=== PATIENT | female | born 1985 | race Caucasian/White ===

== ENCOUNTER 2020-04-14 14:58 | Outpatient (REF) | payer BC, SELFPAY ==
[2020-04-15 13:51] LABS: BV Int Neg Control Negative (Negative); BV Int Pos Control Positive (Positive)
[2020-04-15 13:54] LABS: CT PCR NOT DETECTED (Not Detect.); NG PCR NOT DETECTED (Not Detect.)
== END 2020-04-14 14:59 | disposition home or self-care (01) ==
LOC: HO.LAB 14:58
PROVIDERS: PCP Internal Medicine; Referring Provider Internal Medicine; Visit Provider Advanced Practice Midwife
DX: Z20.2 Contact with and (suspected) exposure to infections with a predominantly sexual mode of transmission (principal); Z87.42 Personal history of other diseases of the female genital tract; Z01.419 Encounter for gynecological examination (general) (routine) without abnormal findings
CPT/HCPCS: 87480; 87491; 87510; 87591; 87660; 88142

== ENCOUNTER 2020-04-14 17:01 | Outpatient (REF) | payer BC, SELFPAY ==
[2020-04-14 17:25] LABS: Baso%MD 1.8 %; Eos%MD 5.8 %; Hematocrit 38.3 % (37-47); Hemoglobin 12.2 g/dl (12.0-16.0); IG%MD 0.2 %; Lymph%MD 29.9 %; Mean Corpuscular HGB Conc 31.9 g/dl (31.0-35.0); Mean Corpuscular Volume 97.2 fL (80-98); Mean Platelet Volume 10.6 fL (9.4-12.3); Mono%MD 10.1 %; Neut%MD 52.2 %; Platelet Count 274 X10*3/uL (160-400); Red Blood Count 3.94 X10*6/uL (4.20-5.50); Red Cell Distribution Width 12.5 % (11.0-16.0); White Blood Count 6.1 X10*3/uL (4.8-10.8)
[2020-04-14 18:04] LABS: Alanine Aminotransferase 11 U/L (0-31); Albumin Level 4.4 g/dL (3.5-5.0); Alkaline Phosphatase 89 U/L (39-117); Anion Gap 12 (12-20); Aspartate Amino Transferase 15 U/L (5-31); Bilirubin Total 0.7 mg/dL (0.0-1.0); Blood Urea Nitrogen 12 mg/dL (9-16); Calcium 8.5 mg/dL (8.4-10.2); Carbon Dioxide 27 mmol/L (22-29); Chloride 104 mmol/L (96-108); Estimated Glomerular Filt Rate > 60; Glucose Random 74 mg/dL (60-115); Potassium 4.6 mmol/l (3.3-5.1); Sodium 138 mmol/L (135-145); Total Protein 6.8 g/dL (6.5-8.0)
[2020-04-14 18:24] LABS: TSH reflex Free T4 1.29 mIU/mL (0.32-4.0)
[2020-04-14 18:36] LABS: Folate 10.9 ng/mL (> or = 4.0); Vitamin B12 405 pg/mL (200-900)
[2020-04-14 19:06] LABS: Band Neutrophils Percent 1 % (3-5); Basophils Abs Manual 0.1 X10*3/uL (0.0-0.3); Basophils Percent Manual 2 % (0-1); Eosinophils Absolute Manual 0.3 X10*3/UL (0.0-0.8); Eosinophils Percent Manual 5 % (0-4); Lymphocytes Absolute Manual 1.6 X10*3/uL (0.6-4.8); Lymphocytes Percent Manual 26 % (20-40); Monocytes Absolute Manual 0.4 X10*3/uL (0.0-1.2); Monocytes Percent Manual 6 % (2-11); Neutrophils Absolute Manual 3.7 X10*3/uL (2.2-7.9); Neutrophils Percent Manual 60 % (45-73)
[2020-04-14 19:07] LABS: RBC Morphology NORMAL
[2020-04-14 19:08] LABS: Platelet Estimate NORMAL (NORMAL); Platelet Morphology Comment NORMAL
== END 2020-04-14 17:02 | disposition home or self-care (01) ==
LOC: HO.LAB 17:01
PROVIDERS: PCP Internal Medicine; Visit Provider Internal Medicine
DX: Z01.419 Encounter for gynecological examination (general) (routine) without abnormal findings (principal); R63.4 Abnormal weight loss; Z87.42 Personal history of other diseases of the female genital tract; Z20.2 Contact with and (suspected) exposure to infections with a predominantly sexual mode of transmission
CPT/HCPCS: 36415; 80053; 82607; 82746; 84443; 85007; 85027

== ENCOUNTER 2021-08-14 08:48 | Outpatient (REF) | payer BC, SELFPAY ==
[2021-08-17 18:17] LABS: HPV mRNA E6/E7 rflx Not Detected (Not Detected)
== END 2021-08-14 08:49 | disposition home or self-care (01) ==
LOC: HO.LAB 08:48
PROVIDERS: Visit Provider Advanced Practice Midwife
DX: Z01.419 Encounter for gynecological examination (general) (routine) without abnormal findings (principal); Z11.51 Encounter for screening for human papillomavirus (HPV)
CPT/HCPCS: 87624; 88142

== ENCOUNTER 2023-04-23 17:23 | Outpatient (AMB) | payer BC, SELFPAY ==
--- NOTE | 2023-04-23 17:25 | MHC.PC.OV ---
Vital Signs 04/23/23 17:26 Height 5 ft 3 in Weight 131 lb BMI 23.2 BP 110/70 Blood Pressure Location Lt brachial Position Sitting Intake Visit Reasons: PHYSICAL Intake Note: Patient here for a physical exam Medical Lab Technician Required: No Accompanied by: Self / Same As Patient Allergies seasonal Allergy (Mild, Uncoded 04/23/23 17:29) Itchy Eyes Medication List - Last Reconciled 04/23/23 by Shandra Gatica MD No Known Home Meds Tobacco use date assessed: 04/23/23 Dental Screening Dental Screen Date: 04/23/23 Did you have a dental visit in the last 12 months?: Yes Did you have a dental problem in the last 6 months where you did not have access to dental care?: No Was dental information given to patient?: Patient has dentist HPI HPI Comments History of Present Illness Details This is a 37-year-old female that comes for her physical exam. Last Pap smear was 2021 and was normal. No chest pain or shortness of breath. No fever or cough. PFSH Medical History Basophilia Weight loss Surgical History H/O LEEP Family History Father Cancer Mother No problems noted. 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 1. Little interest or pleasure in doing things: not at all 2. Feeling down, depressed, or hopeless: not at all 3. Trouble falling or staying asleep, or sleeping too much: not at all 4. Feeling tired or having little energy: not at all 5. Poor appetite or overeating: not at all 6. Feeling bad about yourself - or that you are a failure or have let yourself or your family down: not at all 7. Trouble concentrating on things, such as reading the newspaper or watching television: not at all 8. Moving or speaking so slowly that other people could have noticed. Or the opposite - being so fidgety or restless that you have been moving around a lot more than usual: not at all 9. Thoughts that you would be better off or of hurting yourself in some way: not at all Total score: 0 Depression Screening Interpretation: Negative Depression Screening Done: Yes Source: Developed by Drs. Leonel Morin, Julia Shaffer, Eugene Clark and colleagues, with an educational graciela from [employer]. Thrive Questionnaire Date Thrive assessed: 04/23/23 I am a: Patient What is your living situation today?: I have a steady place to live Within the past 12 months, did the food you bought not last and you didn't have the money to get more?: Never true Within the past 12 months, did you worry whether your food would run out before you got money to buy more?: Never true Do you have trouble paying for medicines?: No Do you have trouble getting transportation to medical appointments?: No Do you have trouble paying your heating and electricity bill?: No Do you have trouble taking care of your child, family member or friend?: No Do you have trouble with day-to-day activities such as bathing, preparing meals, shopping, managing finances, etc.?: No Are you currently unemployed and looking for a job?: No Are you interested in more education?: No Please select the resources that you would like help with: None Currently or been in a relationship where the following occur: no concerns reported AUDIT C Alcohol Use Questionnaire (AUDIT-C) 1. How often do you have a drink containing alcohol?: Never Total Score: 0 NISH-7 AMB Questionnaire NISH-7 Date NISH - 7 assessed: 04/23/23 Feeling nervous, anxious, or on edge: 0 = Not at all Not being able to stop or control worryin = Not at all Worrying too much about different things: 0 = Not at all Trouble relaxin = Not at all Being so restless that it is hard to sit still: 0 = Not at all Becoming easily annoyed or irritable: 0 = Not at all Feeling afraid as if something awful might happen: 0 = Not at all Total NISH-7 score (0-4 normal; 5-9 mild; 10-14 moderate; 15-21 severe): 0 Source: Developed by Drs. Leonel Morin, Julia Shaffer, Eugene Clark and colleagues, with an educational graciela from [employer]. NISH-7 Assessment Billing NISH-7 Assessment Tool: NISH-7 Assessment 98534 Review of Systems Const All systems reviewed & are unremarkable except as noted in HPI and below Eyes Reports no additional complaints, Denies change in vision and Denies other visual disturbances Card Denies chest pain at rest, Denies chest pain with activity, Denies edema, Denies irregular heart rhythm, Denies claudication, Denies dyspnea, Denies dyspnea on exertion, Denies orthopnea, Denies paroxysmal nocturnal dyspnea and Denies slow heart rate Resp Denies cough, Denies dyspnea and Denies dyspnea on exertion GI Denies abdominal pain, Denies change in bowel habits, Denies excessive flatus, Denies nausea and Denies vomiting Denies urinary incontinence, Denies urinary hesitancy and Denies urinary urgency Musc Denies abnormal gait, Denies atrophy, Denies deformity and Denies limited range of motion Skin/Breast Denies bleeding lesions, Denies changing lesions and Denies rash Neuro Denies abnormal gait and Denies lack of coordination Physical exam (Primary Care) Vital Signs: Last Vital Signs BP 110/70 04/23/23 17:26 BMI result Body Mass Index 23.2 Tobacco/Smoking Status: Tobacco use Status Tobacco use date assessed 04/23/23 04/23/23 17:30 Patient Tobacco Use Status Never used Tobacco 04/23/23 17:29 Tobacco use type 04/11/22 17:22 e-Cigarette/Vaping Use Never Used 04/23/23 17:29 PHQ-9: PHQ-9 Score PHQ-9: Total score 0 04/23/23 17:29 Depression Screening Interpretation: Negative Thrive Assessment: Date of Thrive Assessment Date Thrive assessed 04/23/23 04/23/23 17:29 Currently or been in a relationship where the following occur: no concerns reported Const Orientation/consciousness: patient oriented x3 HENKY Head: Yes normal to inspection, Yes normocephalic and Yes atraumatic Ears: external ears normal Eyes General: appearance normal, both eyes and all related structures Eyelids: Yes eyelids normal Conjunctivae: conjunctivae normal Neck Neck: Yes normal visual inspection and Yes supple Resp Effort & Inspection: normal respiratory effort Auscultation: clear to auscultation bilaterally Cardio Jugular venous distension: no JVD Rate: regular rate Rhythm: regular rhythm Heart sounds: S1 normal heart sound present and S2 normal heart sound present GI Inspection: Yes normal to inspection Palpation (GI): Soft to palpation and nontender Auscultation: normal bowel sounds Skin General skin exam: no rashes or lesions noted Neuro General: patient oriented x3 and no focal motor deficits Extrem General: Yes full ROM Psych Appearance: grossly normal Office Procedures Flu Questionnaire Does the patient have a severe egg allergy?: No Immunizations flu vacc [id number] 6mos up(PF) 60 mcg(15 mcgx4)/0.5 mL IM syringe Performing Provider: Shandra Gatica MD [facility] Documented (not given) by: FRED Laguerre on 04/23/23 17:30 Reason Not Given: Patient Refused Assessment and Plan Assessment & Plan (1) Encounter for physical examination: Code(s): Z00.00 - Encounter for general adult medical examination without abnormal findings Plan: Repeat in a year. Orders: Orders Influenza [id number] Immunization 04/23/23 Z23 - Encounter for immunization Coding Level of Care Code Est Pt Prev Care 18-39y(44708) Diagnoses Encounter for physical examination Z00.00 Additional Codes PHQ-9 - 88458 - PHQ-9 Billing: ([id number]) NISH-7 Assessment Billing - NISH-7 Assessment Tool: NISH-7 Assessment 47062 ([id number]) Time Spent (min) 30
[2023-04-23 17:26] VITALS: BP 110/70; BMI 23.2
== END 2023-04-23 17:38 | disposition home or self-care (01) ==
LOC: HO.HMGH 17:23
PROVIDERS: PCP Internal Medicine; Visit Provider Internal Medicine
DX: Z00.00 Encounter for general adult medical examination without abnormal findings (principal)
CPT/HCPCS: 99395

== ENCOUNTER 2023-06-12 14:02 | Outpatient (AMB) | payer BC, SELFPAY ==
[2023-06-12 14:24] VITALS: BP 94/60; BMI 22.7
--- NOTE | 2023-06-12 14:24 | MHC.OFFVIS ---
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 Doing well with no concerns. She tries to eat healthy and stays active with exercise. Regular monthly menses. Not interested in control at this time, current method has worked for the 5-6 years, she is considering possibly in a year to have a . Currently is sexually active. She denies vaginal itching and irritation. STI screening offered; she declines. Denies family history of breast, ovarian or colon cancer. Last pap smear 2022, negative. [facility] Medical History Basophilia Weight loss Surgical History H/O LEEP Family History Father Cancer Mother No problems noted. 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 Current occupational exposures/hazards: No Gender identity: Female Cognitive needs: No Hearing needs: No Vision needs: No Female Reproductive History Menstrual Age of Menarche: 15 Duration of menses: 3-5 days Date of last menstrual period: 05/22/23 control method: none and other (Withdrawal) Total pregnancies: 0 Date of last pap smear: 08/14/21 (neg pap and hpv) History of abnormal pap smear: Yes (h/o Leep 2009) Review of Systems Const All systems reviewed & are unremarkable except as noted in HPI and below Reports as per HPI Eyes Reports no additional complaints ENT Reports no additional complaints Card Reports no additional complaints Resp Reports no additional complaints GI Reports as per HPI and Reports no additional complaints Reports as per HPI Musc Reports no additional complaints Skin/Breast Reports as per HPI Neuro Reports no additional complaints Psych Reports no additional complaints Endo Reports no additional complaints Mitch/Lymph Reports no additional complaints Aller/Immun Reports no additional complaints Physical Exam Vital Signs: Last Vital Signs BP 94/60 06/12/23 14:24 BMI result Body Mass Index 22.7 Const General: cooperative, healthy appearing, no acute distress, well developed and alert Orientation/consciousness: patient oriented x3 HEENT Head: Yes normal to inspection Eyes General: appearance normal, both eyes and all related structures Neck Neck: Yes normal visual inspection Thyroid: Thyroid normal Chest Chest palpation & inspection: normal inspection of the chest and other (no puckering, dimpling, peau de orange, retraction, discharge, masses) Breast/axilla inspection: normal inspection of the breasts Breast/axilla palpation: normal palpation of the breasts Resp Effort & Inspection: normal respiratory effort GI Inspection: Yes normal to inspection Palpation (GI): Soft to palpation Rectal Exam - Female: deferred General: Yes bladder normal to palpation External Female Exam: normal external appearance and normal appearance of the urethra Speculum Exam - Vagina: normal appearance of the vagina, normal palpation and normal vaginal discharge Speculum Exam - Cervix: normal appearance of the cervix, normal palpation and Other cervical findings present (Post LEEP appearance) Bimanual exam- vagina & uterus: normal bimanual exam, normal palpation, uterine size normal, bladder normal to palpation, normal palpation and non-tender Bimanual Exam- Adnexa, other: no masses Skin General skin exam: no rashes or lesions noted Rashes: no rashes Neuro General: patient oriented x3 Cognition (Neuro): normal cognition Extrem General: Yes normal to inspection Psych Attitude: cooperative Thought process: Normal thought process present Assessment & Plan Assessment & Plan (1) Well woman exam with routine gynecological exam: Code(s): Z01.419 - Encounter for gynecological examination (general) (routine) without abnormal findings Plan: Discussed: Current recommendations for pap smears per ASCCP guidelines. Breast awareness and periodic breast exams. Maintain a healthy lifestyle including a well balanced diet and routine exercise. Start a vitamin or a woman's multivitamin with folic acid per the prevention of neural tube defects. Discussed safety concerns at her job advised to check in with her union to see with the OSHA regulations are in safety concerns for environmental hazards. Fertility concerns at this time due to her age. Informed about TRICE services in advanced maternal age concerns. All of her questions and concerns were addressed to the best of my ability. RTO in one year for annual precision aircraft structure assembler examination. This note is constructed using voice recognition software. While every effort has been made to ensure accuracy, sagger preparer errors may have been included. Coding Level of Care Code Est Pt Prev Care 18-39y(01167) Diagnoses Well woman exam with routine gynecological exam Z01.419
== END 2023-06-12 14:53 | disposition home or self-care (01) ==
PROVIDERS: PCP Internal Medicine; Visit Provider Advanced Practice Midwife
DX: Z01.419 Encounter for gynecological examination (general) (routine) without abnormal findings (principal)
CPT/HCPCS: 99395

== ENCOUNTER → 2023-06-12 14:02 | Outpatient (BNVA) | payer BC, SELFPAY | PROVIDERS: PCP Internal Medicine; Visit Provider Advanced Practice Midwife ==

== ENCOUNTER 2023-12-15 07:26 | Outpatient (REF) | payer BC, SELFPAY ==
[2023-12-15 08:35] LABS: Alanine Aminotransferase 12 U/L (0-31); Albumin Level 4.3 g/dL (3.5-5.0); Alkaline Phosphatase 84 U/L (39-117); Anion Gap 13 (12-20); Aspartate Amino Transferase 16 U/L (5-31); Bilirubin Total 0.7 mg/dL (0.0-1.0); Blood Urea Nitrogen 9 mg/dL (9-16); Calcium 9.2 mg/dL (8.4-10.2); Carbon Dioxide 26 mmol/L (22-29); Chloride 103 mmol/L (96-108); Cholesterol 161 mg/dL (<200); Estimated Glomerular Filt Rate > 60; Glucose Fasting 90 mg/dL (60-99); HDL Cholesterol 62 mg/dL (>40); LDL Cholesterol Calculated 87 mg/dL (<100); Potassium 3.8 mmol/L (3.3-5.1); Sodium 138 mmol/L (135-145); Total Protein 6.8 g/dL (6.5-8.0); Triglycerides 61 mg/dL (<150)
[2023-12-17 13:07] LABS: Venous Lead 1.5 mcg/dL (<3.5)
== END 2023-12-15 07:27 | disposition home or self-care (01) ==
LOC: HO.LAB 07:26
PROVIDERS: PCP Internal Medicine; Visit Provider Internal Medicine
DX: Z00.00 Encounter for general adult medical examination without abnormal findings (principal); Z77.011 Contact with and (suspected) exposure to lead
CPT/HCPCS: 36415; 80053; 80061; 83655

== ENCOUNTER 2024-05-04 17:31 | Outpatient (AMB) | payer BC, SELFPAY ==
--- NOTE | 2024-05-04 17:34 | A.OFFPC_ITS ---
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 Required: No Accompanied by: Self / Same As Patient Allergies seasonal Allergy (Mild, Uncoded 05/04/24 17:47) Itchy Eyes Medication List - Last Reconciled 05/04/24 by Shandra Gatica MD No Known Home Meds Tobacco use date assessed: 05/04/24 Dental Screening Dental Screen Date: 05/04/24 Did you have a dental visit in the last 12 months?: Yes Did you have a dental problem in the last 6 months where you did not have access to dental care?: No Was dental information given to patient?: Patient has dentist HPI HPI Comments History of Present Illness Details The patient is a 38-year-old female presenting for her annual physical examination. During this visit, we identified her need for the Tdap vaccine, which she has not received in a long time. In reviewing her history, the patient experiences seasonal allergies, for which she currently takes no medication. She reports a history of pityriasis rosea that resolved after approximately two months without identification of an inciting factor. Following this, she developed tinea corporis, for which she sought care from urgent care and subsequently a sales associate. Both conditions have resolved with treatment, though the etiology remains unclear and attributed to bad luck. 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 Currently, she expresses concerns over recurrent ringworm episodes possibly related to past infections. She reports no symptoms indicative of an active infection. In her attempts to conceive, she has been trying for two months without much concern for timing at this stage. The alva ent?s Pap smear in 2021 was normal and HPV-negative. - Tdap vaccine: Recommended and to be ad ministered at a nurse visit. - Seasonal allergies: No medications cur rently taken. - Pap smear: Normal in 2021 with HPV-neg ative results. - Encouragement of good diet and moderat e exercise as part of a healthy lifestyle. PFSH Medical History Basophilia Weight loss Surgical History H/O LEEP Family History Father Cancer Mother No problems noted. 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 1. Little interest or pleasure in doing things: not at all 2. Feeling down, depressed, or hopeless: not at all 3. Trouble falling or staying asleep, or sleeping too much: not at all 4. Feeling tired or having little energy: not at all 5. Poor appetite or overeating: not at all 6. Feeling bad about yourself - or that you are a failure or have let yourself or your family down: not at all 7. Trouble concentrating on things, such as reading the newspaper or watching television: not at all 8. Moving or speaking so slowly that other people could have noticed. Or the opposite - being so fidgety or restless that you have been moving around a lot more than usual: not at all 9. Thoughts that you would be better off or of hurting yourself in some way: not at all Total score: 0 Depression Screening Interpretation: Negative Depression Screening Done: Yes 04219 - PHQ-9 Billing: Yes Source: Developed by Drs. Leonel Morin, Julia Shaffer, Eugene Clark and colleagues, with an educational graciela from [employer]. Thrive Questionnaire Date Thrive assessed: 04/27/24 I am a: Patient What is your living situation today?: I have a steady place to live Within the past 12 months, did the food you bought not last and you didn't have the money to get more?: Never true Within the past 12 months, did you worry whether your food would run out before you got money to buy more?: Never true Do you have trouble paying for medicines?: No Do you have trouble getting transportation to medical appointments?: No Do you have trouble paying your heating and electricity bill?: No Do you have trouble taking care of your child, family member or friend?: No Do you have trouble with day-to-day activities such as bathing, preparing meals, shopping, managing finances, etc.?: No Are you currently unemployed and looking for a job?: No Are you interested in more education?: No Please select the resources that you would like help with: None Currently or been in a relationship where the following occur: No concerns reported THRIVE Score: 0 AUDIT C Alcohol Use Questionnaire (AUDIT-C) 1. How often do you have a drink containing alcohol?: Never Total Score: 0 Score Reviewed/Action Taken: No NISH-7 AMB Questionnaire NISH-7 Date NISH - 7 assessed: 05/04/24 Feeling nervous, anxious, or on edge: 0 = Not at all Not being able to stop or control worryin = Not at all Worrying too much about different things: 0 = Not at all Trouble relaxin = Not at all Being so restless that it is hard to sit still: 0 = Not at all Becoming easily annoyed or irritable: 0 = Not at all Feeling afraid as if something awful might happen: 0 = Not at all Total NISH-7 score (0-4 normal; 5-9 mild; 10-14 moderate; 15-21 severe): 0 Source: Developed by Drs. Leonel Morin, Julia Shaffer, Eugene Clark and colleagues, with an educational graciela from [employer]. NISH-7 Assessment Billing NISH-7 Assessment Tool: NISH-7 Assessment 66605 Review of Systems Const All systems reviewed & are unremarkable except as noted in HPI and below Card Denies chest pain at rest, Denies chest pain with activity, Denies edema, Denies irregular heart rhythm, Denies claudication, Denies dyspnea, Denies dyspnea on exertion, Denies orthopnea, Denies paroxysmal nocturnal dyspnea and Denies slow heart rate Resp Denies cough, Denies dyspnea and Denies dyspnea on exertion GI Denies abdominal pain, Denies change in bowel habits, Denies excessive flatus, Denies nausea and Denies vomiting Physical exam (Primary Care) Vital Signs: Last Vital Signs BP 112/80 05/04/24 17:35 BMI result Body Mass Index 24.1 Tobacco/Smoking Status: Tobacco use Status Tobacco use date assessed 05/04/24 05/04/24 17:42 Patient Tobacco Use Status Never used Tobacco 05/04/24 17:42 Tobacco use type 04/11/22 17:22 e-Cigarette/Vaping Use Never Used 05/04/24 17:42 PHQ-9: PHQ-9 Score PHQ-9: Total score 0 05/04/24 17:48 Depression Screening Interpretation: Negative Thrive Assessment: Date of Thrive Assessment Date Thrive assessed 04/27/24 05/04/24 17:42 Currently or been in a relationship where the following occur: No concerns reported HENMI Head: Yes normal to inspection, Yes normocephalic and Yes atraumatic Ears: external ears normal Eyes General: appearance normal, both eyes and all related structures Eyelids: Yes eyelids normal Conjunctivae: conjunctivae normal Neck Neck: Yes normal visual inspection and Yes supple Resp Effort & Inspection: normal respiratory effort Auscultation: clear to auscultation bilaterally Cardio Jugular venous distension: no JVD Rate: regular rate Rhythm: regular rhythm Heart sounds: S1 normal heart sound present and S2 normal heart sound present GI Inspection: Yes normal to inspection Palpation (GI): Soft to palpation and nontender Auscultation: normal bowel sounds Skin General skin exam: no rashes or lesions noted Neuro General: no focal motor deficits Extrem General: Yes full ROM Psych Appearance: grossly normal Office Procedures Flu Questionnaire Does the patient have a severe egg allergy?: No Immunizations Fluarix Triv [id number] (PF) 45 mcg (15 mcg x 3)/0.5 mL IM syringe Performing Provider: Shandra Gatica MD [facility] Documented (not given) by: FRED Laguerre on 05/04/24 17:42 Reason Not Given: Patient Refused Coding Level of Care Code Est Pt Prev Care 18-39y(68169) Diagnoses Encounter for physical examination Z00.00 Additional Codes NISH-7 Assessment Billing - NISH-7 Assessment Tool: NISH-7 Assessment 33608 ([id number]) PHQ-9 - 71425 - PHQ-9 Billing: Yes ([id number]) Time Spent (min) 31 Assessment & Plan Assessment & Plan (1) Encounter for physical examination: Code(s): Z00.00 - Encounter for general adult medical examination without abnormal findings Category: Medical Plan - Seasonal Allergies: No medication change needed at this time unless symptoms worsen. - Tdap Vaccine: To make a nurse visit to ensure up-to-date vaccination status. - Pityriasis Rosea and Tinea Corporis: Resolved, no further action needed unless recurrence occurs. - Past Infections EBV and Lyme Disease): No current symptoms. No immediate testing required unless new symptoms develop. - Family Planning: Continue use of ovulation kits and temperature tracking. Consider assisted reproductive technologies if conception does not occur after one year of attempts. Patient was informed and verbally consented to the use of an ambient scribe for clinic note documentation during this visit. I discussed with the patient the importance of receiving the Tdap vaccine, especially in the context of her plans to conceive. I reiterated that the vaccine would not interfere with her efforts to get and highlighted its role in preventing pertussis, which could be beneficial in the context of future . We reviewed her dermatologic history, acknowledging her experiences with pityriasis rosea and tinea corporis, and agreed these resolved without ongoing issues. We ruled out immediate testing for Lyme Disease or Rodriguez-Garland Virus due to lack of symptoms indicative of a recurrence. Regarding her conception efforts, I advised her to continue using ovulation tracking measures and maintain a healthy lifestyle. Follow-up was suggested for monitoring her progress in conceiving if needed in the future. Orders: Orders Influenza [id number] Immunization Today Z23 - Encounter for immunization Patient Instructions: - Receive Tdap vaccine by making a nurse visit. - Continue trying to conceive with current methods; plan reassessment if no progress within one year. - Maintain seasonal allergy management as symptoms dictate. - Adhere to a balanced diet and engage in moderate physical activities.
[2024-05-04 17:35] VITALS: BP 112/80; BMI 24.1
--- OUTSIDE RECORDS SUMMARY | 2024-05-05 22:31 | XMS_ITS | Data Portability ---
Author Organization [facility] rajesh [id number] [place] [address] Assessment No assessment recorded. Plan of Treatment Reminders Order Date Submit Date Provider Last Modified By Organization Details Last Modified Time Details Appointments None record ed. Lab None record ed. Referral None record ed. Procedures None record ed. Surgeries None record ed. Imaging None record ed. Medication Orders None record ed. Patient TargetsNo targets recorded. Patient Instructions Encounter Date Encounter Id Patient Instructions Last Modified By Organization Details Last Modified Time 01/20/2024 [id number] Explained that Pityriasis rosea is a self-limiting rash that goes away on its own without any treatment. Although the rash can be quite dramatic, the illness is very mild. This rash itself is not contagious. It most commonly affects young adults but can affect all ages. The rash fades in time but this may take several weeks. It leaves no peterson or scarring. Second attacks are very rare. [email or web address] Not available 01/20/2024 18:32:34 Reason for Referral None Reported. Problems No Known Problems Medical Equipment None Reported. Allergies No known drug allergies Medications Not known to be on any medication Vitals Date Recorded Body height Body weight Oxygen saturation Oxygen saturation in Arterial blood by Pulse oximetry Heart rate Respiratory rate Body temperature Systolic blood pressure Diastolic blood pressure Provider Name and Address Organization Details Last Updated DateTime 4 160.02 cm 64817.0 1 g 99 % 99 % 86 /min 18 /min 98.8 [degF] 100 mm[Hg] 67 mm[Hg] Becky Reed [facility] 4 18:05:01 Social History Question Answer Notes LastModified by Organizat ion Details LastModified Time Tobacco Smoking Status Never Smoker MORGAN Berger [facility] 01/20/2024 18:03:39 What Is Your Level Of Alcohol Consumption? None Information not available 01/20/2024 Are You Currently Employed? Yes Information not available 01/20/2024 Have You Had A Flu Shot This Season? Yes Information not available 01/20/2024 What Is Your Relationship Status? Information not available 01/20/2024 Are You Passively Exposed To Smoke? No Information no t available 01/20/2024 Do You Use Any Illicit Or Recreational Drugs? No Information not available 01/20/2024 Have You Recently Traveled Abroad? No Information not available 01/20/2024 Do You Or Have You Ever Used Any Other Forms Of Tobacco Or Nicotine? No Information not available 01/20/2024 Sex: Unknown Functional Status None recorded. Mental Status None recorded. Family History Relationship Description Onset Age of this Age Resolved Age Notes LastModified by Organization Details LastModified Time Father No current problems or disability Not available 01/19 18:03:33 Mother No current problems or disability Not available 01/19 18:03:33 Medical History No medical history recorded. Gynecological History Statement/Question Response Date of LMP 12/15/2023 Is there any chance of ? No LMP Definite Obstetrics History GPAL:G 0 P 0 0 0 0 Past Encounters Encounter ID Performer Location Encounter Start Date Encounter Closed Date Diagnosis/Indication Diagnosis SNOMED-CT Code Diagnosis ICD10 Code [id number] [place] [address] 02/01/2018 11:29:44 02/01/2018 12:32:31 [id number] [address] [place] [address] 11/15/2020 14:22:39 11/15/2020 15:05:42 [id number] [place] VALDEZ [place] [address] [facility] [place] [address] 01/20/2024 17:51:52 01/20/2024 18:33:46 Pityriasis rosea 52837075 L42 Health Concerns Section Related Observation LastModified by Organization Detai ls LastModified Time None Recorded Concern Status LastModified by Organization Details LastModified Time None Recorded Advance Directives Directive None Recorded Payers Encounter Date Sequence Insurance Name Policy Number Policy Bray Covered Member ID Bray Member ID Guarantor Name 02/01/2018 1 [place] [id number] Pearl Calandrella [id number] Pearl Calandrella 01/20/2024 1 [place] [id number] Pearl Calandrella [id number] Pearl Calandrella Notes Date Note Type Note Provider Name and Address Organization Details Recorded Time 01/20/2024 text/html 38 yo female presents with a diffuse rash on her abdomen and back x 1 week. She says she was hiking in the [place] with a friend 2 weeks ago and was fine afterward. The rash appeared 1 week ago on her lower abdomen and has spread across it and to her back. She denies recent illness, medication, new foods or chemical exposures. She is afebrile. MAG VALDEZ MD [address] [place], [address], [place] [facility] 01/20/2024 18:40:25 OBGyn Episode No OBEpisode recorded.
== END 2024-05-04 18:06 | disposition home or self-care (01) ==
PROVIDERS: PCP Internal Medicine; Visit Provider Internal Medicine
DX: Z23 Encounter for immunization (principal); Z00.00 Encounter for general adult medical examination without abnormal findings

== ENCOUNTER → 2024-05-04 17:31 | Outpatient (BNVA) | payer BC, SELFPAY | PROVIDERS: PCP Internal Medicine; Visit Provider Internal Medicine | DX: Z00.00 Encounter for general adult medical examination without abnormal findings (principal); Z28.21 Immunization not carried out because of patient refusal | CPT/HCPCS: 90471; 96127 ==

== ENCOUNTER 2024-05-06 09:03 | Outpatient (AMB) | payer BC, SELFPAY ==
--- NOTE | 2024-05-06 09:11 | A.OFFPC_ITS ---
Intake Visit Reasons: tdap vaccine Allergies seasonal Allergy (Mild, Uncoded 05/04/24 17:47) Itchy Eyes Tobacco use date assessed: 05/04/24 Dental Screening Dental Screen Date: 05/04/24 PFSH Medical History Basophilia Weight loss Surgical History H/O LEEP Family History Father Cancer Mother No problems noted. 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 Current occupational exposures/hazards: No Gender identity: Female Cognitive needs: No Hearing needs: No Vision needs: No Female Reproductive History Menstrual Age of Menarche: 15 Questionnaire Thrive Questionnaire Date Thrive assessed: 04/27/24 I am a: Patient What is your living situation today?: I have a steady place to live Within the past 12 months, did the food you bought not last and you didn't have the money to get more?: Never true Within the past 12 months, did you worry whether your food would run out before you got money to buy more?: Never true Do you have trouble paying for medicines?: No Do you have trouble getting transportation to medical appointments?: No Do you have trouble paying your heating and electricity bill?: No Do you have trouble taking care of your child, family member or friend?: No Do you have trouble with day-to-day activities such as bathing, preparing meals, shopping, managing finances, etc.?: No Are you currently unemployed and looking for a job?: No Are you interested in more education?: No Please select the resources that you would like help with: None Currently or been in a relationship where the following occur: No concerns reported THRIVE Score: 0 NISH-7 AMB Questionnaire NISH-7 Date NISH - 7 assessed: 05/04/24 Source: Developed by Drs. Leonel Morin, Julia Shaffer, Eugene Clark and colleagues, with an educational graciela from [employer]. Physical exam (Primary Care) Tobacco/Smoking Status: Tobacco use Status Tobacco use date assessed 05/04/24 05/06/24 09:15 Patient Tobacco Use Status Never used Tobacco 05/06/24 09:15 Tobacco use type 04/11/22 17:22 e-Cigarette/Vaping Use Never Used 05/06/24 09:15 Thrive Assessment: Date of Thrive Assessment Date Thrive assessed 04/27/24 05/06/24 09:15 Currently or been in a relationship where the following occur: No concerns reported Immunizations Boostrix Tdap 2.5 Lf unit-8 mcg-5 Lf/0.5 mL intramuscular syringe Performing Provider: Shandra Gatica MD Performing [facility] [place] [facility] [place] Administered by: Marissa Mae LPN on 05/06/24 09:16 Dose Route Admin Location Dispensed Lot Number Expiration Date 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 Next Tdap in 10 years. Orders: Orders TDaP Immunization 05/06/24 Z23 - Encounter for immunization
== END 2024-05-06 09:17 | disposition home or self-care (01) ==
PROVIDERS: PCP Internal Medicine; Visit Provider Internal Medicine
DX: Z23 Encounter for immunization (principal)

== ENCOUNTER → 2024-05-06 09:03 | Outpatient (BNVA) | payer BC, SELFPAY | PROVIDERS: PCP Internal Medicine; Visit Provider Internal Medicine | DX: Z23 Encounter for immunization (principal) | CPT/HCPCS: 90471; 90715 ==

== ENCOUNTER 2025-05-17 16:04 | Outpatient (AMB) | payer BC, SELFPAY ==
--- NOTE | 2025-05-17 16:07 | MHC.PC.OV ---
Vital Signs 05/17/25 16:11 Height 5 ft 3 in Weight 152 lb 8 oz BMI 27.0 BP 98/56 L Blood Pressure Location Lt brachial Position Sitting Pulse 79 Pulse Source Pulse Oximeter Temp 97.7 F Temp Source Temporal Artery Scan Pulse Oximetry (%) 97 Oxygen Delivery Method Room Air Intake Visit Reasons: Annual Physical [employer] Required: No Accompanied by: Self / Same As Patient Allergies seasonal Allergy (Mild, Uncoded 05/17/25 16:30) Itchy Eyes Medication List - Last Reconciled 05/17/25 by Shandra Gatica MD No Known Home Meds Tobacco use date assessed: 05/17/25 Dental Screening Dental Screen Date: 05/17/25 Did you have a dental visit in the last 12 months?: Yes Did you have a dental problem in the last 6 months where you did not have access to dental care?: No Was dental information given to patient?: Patient has dentist HPI HPI Comments History of Present Illness Details This is a 39-year-old female that comes for her physical exam. Pap smear done 2021 and HPV was negative. Last labs were within normal limits. Denies any acute complaints. Declines flu vaccine. Had Tdap vaccine last year because she deliver a baby 15 weeks ago. [facility] Medical History (Updated 05/17/25 @ 16:36 by Shandra Gatica MD) Vaginal delivery Basophilia Weight loss Surgical History H/O LEEP Family History Father Cancer Mother No problems noted. 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 1. Little interest or pleasure in doing things: not at all 2. Feeling down, depressed, or hopeless: not at all 3. Trouble falling or staying asleep, or sleeping too much: not at all 4. Feeling tired or having little energy: not at all 5. Poor appetite or overeating: not at all 6. Feeling bad about yourself - or that you are a failure or have let yourself or your family down: not at all 7. Trouble concentrating on things, such as reading the newspaper or watching television: not at all 8. Moving or speaking so slowly that other people could have noticed. Or the opposite - being so fidgety or restless that you have been moving around a lot more than usual: not at all 9. Thoughts that you would be better off or of hurting yourself in some way: not at all Total score: 0 Depression Screening Interpretation: Negative Depression Screening Done: Yes 44630 - PHQ-9 Billing: Yes Source: Developed by Drs. Leonel Morin, Julia Shaffer, Eugene Clark and colleagues, with an educational graciela from [employer]. Thrive Questionnaire Date Thrive assessed: 05/17/25 I am a: Patient What is your living situation today?: I have a steady place to live Within the past 12 months, did the food you bought not last and you didn't have the money to get more?: Never true Within the past 12 months, did you worry whether your food would run out before you got money to buy more?: Never true Do you have trouble paying for medicines?: No Do you have trouble getting transportation to medical appointments?: No Do you have trouble paying your heating and electricity bill?: No Do you have trouble taking care of your child, family member or friend?: No Do you have trouble with day-to-day activities such as bathing, preparing meals, shopping, managing finances, etc.?: No Are you currently unemployed and looking for a job?: No Are you interested in more education?: No Please select the resources that you would like help with: None Currently or been in a relationship where the following occur: No concerns reported THRIVE Score: 0 AUDIT C Alcohol Use Questionnaire (AUDIT-C) 1. How often do you have a drink containing alcohol?: Never Total Score: 0 Score Reviewed/Action Taken: No NISH-7 AMB Questionnaire NISH-7 Date NISH - 7 assessed: 05/17/25 Feeling nervous, anxious, or on edge: 0 = Not at all Not being able to stop or control worryin = Not at all Worrying too much about different things: 0 = Not at all Trouble relaxin = Not at all Being so restless that it is hard to sit still: 0 = Not at all Becoming easily annoyed or irritable: 0 = Not at all Feeling afraid as if something awful might happen: 0 = Not at all Total NISH-7 score (0-4 normal; 5-9 mild; 10-14 moderate; 15-21 severe): 0 Source: Developed by Drs. Leonel Morin, Julia Shaffer, Eugene Clark and colleagues, with an educational graciela from [employer]. NISH-7 Assessment Billing NISH-7 Assessment Tool: NISH-7 Assessment 39688 Review of Systems Const All systems reviewed & are unremarkable except as noted in HPI and below Card Denies chest pain at rest, Denies chest pain with activity, Denies edema, Denies irregular heart rhythm, Denies claudication, Denies dyspnea, Denies dyspnea on exertion, Denies orthopnea, Denies paroxysmal nocturnal dyspnea and Denies slow heart rate Resp Denies cough, Denies dyspnea and Denies dyspnea on exertion GI Denies abdominal pain, Denies change in bowel habits, Denies excessive flatus, Denies nausea and Denies vomiting Denies urinary incontinence, Denies urinary hesitancy and Denies urinary urgency Musc Denies atrophy, Denies deformity and Denies limited range of motion Skin/Breast Denies bleeding lesions, Denies changing lesions and Denies rash Physical exam (Primary Care) Vital Signs: Last Vital Signs Temp 97.7 F 05/17/25 16:11 Pulse 79 05/17/25 16:11 BP 98/56 L 05/17/25 16:11 Pulse Ox 97 05/17/25 16:11 Oxygen Delivery Method Room Air 05/17/25 16:11 BMI result Body Mass Index 27.0 Tobacco/Smoking Status: Tobacco use Status Tobacco use date assessed 05/17/25 05/17/25 16:20 Patient Tobacco Use Status Never used Tobacco 05/17/25 16:20 Tobacco use type 04/11/22 17:22 e-Cigarette/Vaping Use Never Used 05/17/25 16:20 PHQ-9: PHQ-9 Score PHQ-9: Total score 0 05/17/25 16:20 Depression Screening Interpretation: Negative Thrive Assessment: Date of Thrive Assessment Date Thrive assessed 05/17/25 05/17/25 16:20 Currently or been in a relationship where the following occur: No concerns reported [facility] Head: Yes normal to inspection, Yes normocephalic and Yes atraumatic Ears: external ears normal Eyes General: appearance normal, both eyes and all related structures Eyelids: Yes eyelids normal Conjunctivae: conjunctivae normal Neck Neck: Yes normal visual inspection and Yes supple Resp Effort & Inspection: normal respiratory effort Auscultation: clear to auscultation bilaterally Cardio Jugular venous distension: no JVD Rate: regular rate Rhythm: regular rhythm Heart sounds: S1 normal heart sound present and S2 normal heart sound present GI Inspection: Yes normal to inspection Palpation (GI): Soft to palpation and nontender Auscultation: normal bowel sounds Skin General skin exam: no rashes or lesions noted Neuro General: no focal motor deficits Extrem General: Yes full ROM Psych Appearance: grossly normal Coding Level of Care Code Est Pt Prev Care 18-39y(19189) Diagnoses Encounter for physical examination Z00.00 Additional Codes PHQ-9 - 63438 - PHQ-9 Billing: Yes ([id number]) NISH-7 Assessment Billing - NISH-7 Assessment Tool: NISH-7 Assessment 27674 ([id number]) Time Spent (min) 30 Assessment & Plan Assessment & Plan (1) Encounter for physical examination: Code(s): Z00.00 - Encounter for general adult medical examination without abnormal findings Category: Medical Plan Repeat physical exam in a year.
[2025-05-17 16:11] VITALS: BP 98/56; PULSE 79; TEMP 36.5; O2SAT 97; BMI 27.0
--- OUTSIDE RECORDS SUMMARY | 2025-05-17 16:54 | XMS_ITS | Data Portability ---
Author Organization [facility] [address] Address [address] [place] [address] Assessment No assessment recorded. Plan of Treatment [...] By Organization Details Last Modified Time 01/20/2024 [id number] Explained that Pityriasis rosea is a self-limiting [...] or scarring. Second attacks are very rare. [email or web address] Not available 01/20/2024 18:32:34 Reason for Referral None Reported. Problems No Known Problems Medical Equipment None Reported. Allergies No known drug allergies Medications Not known to be on any medication Vitals Date Recorded Body height Body weight Oxygen saturation Pain severity - 0-10 verbal numeric rating [Score] - Reported Heart rate Respiratory rate Body temperature Systolic And Diastolic Provider Name and Address Organization Details Last Updated DateTime 4 160.02 cm 16490.0 1 g 99 % 0 86 /min 18 /min 98.8 [degF] 100/67 mm[Hg] Becky Reed [facility] 4 18:05:01 Social History Question Answer Notes LastModified by Organizat ion Details LastModified Time Tobacco Smoking Status Never Smoker [facility] - [facility] 01/20/2024 18:03:39 Have You Had A Flu Shot This Season? Yes Information not available 01/20/2024 What Is Your Relationship Status? Information not available 01/20/2024 Are You Passively Exposed To Smoke? No Information no t available 01/20/2024 Have You Recently Traveled Abroad? No Information not available 01/20/2024 Sex: Unknown Functional Status Question Answer Note LastModified by Organizat ion Details LastModified Time Do you use any illicit or recreational drugs? No Information not available 01/20/2024 Do you or have you ever used any other forms of tobacco or nicotine? No Information not available 01/20/2024 What is your level of alcohol consumption? None Information not available 01/20/2024 Are you currently employed? Yes Information not available 01/20/2024 Mental Status None recorded. Family History Relationship [...] Diagnosis/Indication Diagnosis SNOMED-CT Code Diagnosis ICD10 Code Diagnosis IMO Codes Diagnosis Note [id number] [facility] [address] [place] [address] 02/01/2018 11:29:44 02/01/2018 12:32:31 [id number] [facility] [address] [place] [address] 11/15/2020 14:22:39 11/15/2020 15:05:42 [id number] [place] [address] [place] [address] 01/20/2024 17:51:52 01/20/2024 18:33:46 Pityriasis rosea [id number] L42 Health Concerns Section Related Observation LastModified by Organization Detai ls LastModified Time None Recorded Concern Status LastModified by Organization Details LastModified Time None Recorded Advance Directives Directive None Recorded Payers Insurance Date Sequence Insurance Name Policy Number Policy Bray Covered Member ID Bray Member ID Guarantor Name 01/20/2024 1 [employer] (PPO) [id number] Pearl Killian [id number] Pearl Killian Notes Date Note Type Note Provider Name [...] She is afebrile. MAG VALDEZ MD [address] [place], [address], [place] - [facility] 01/20/2024 18:40:25 OBGyn Episode No OBEpisode recorded.
--- OUTSIDE RECORDS SUMMARY | 2025-05-17 16:55 | XMS_ITS | Clinical Summary ---
Author Organization [facility] Address [address] [place], [place] [id number] Phone Care Team Providers Care Marketing Producer Name Role Phone Pcp, Unknown Primary Care Provider Unavailabl e Allergies No known active allergies Medications No known medications Immunizations Immunization Administration Dates Next Due DTaP, unspecified formulation 11/01/1991 ,11/07/1988,04/25/1987,1986,1986 HPV,quadrivalent 04/22/2007 Hepatitis B, unspecified formulation 05/16/1998, 01/14/1998,12/08/1997 Hib, unspecified formulation 05/21/1988 Influenza, Unspecified Formulation 04/22/2007, MMR 12/07/1996,02/11/1988 Meningococcal MPSV4 01/11/2005 Polio, Unspecified Formulation 2,11/07/1988,02/20/1987,1986 Tdap 05/15/2006 Social History Tobacco Use Types Packs/Day Years Used Date Smoking Tobacco: Never Assessed Education Answer Date Recorded Are you interested in more education? Not on tiffani e 03/09/2024 Are you concerned about learning? Not on file 03/09/2024 No 03/09/2024 No 03/09/2024 Digital Access Answer Date Recorded No 03/09/2024 No 03/09/2024 Reliable internet access at home? Not on file 03/09/2024 Device with a working camera? Not on file Comments Unknown Sex and Gender Information Value Date Recorded Sex Assigned at Not on file Legal Sex Female 5:34 AM EST Gender Identity Not on file Sexual Orientation Not on file Last Filed Vital Signs Vital Sign Reading Time Taken Comments Blood Pressure 104/68 03/23/2024 2:53 PM EDT Pulse 80 03/23/2024 2:53 PM EDT Temperature 36.7 C (98 F) 03/23/2024 2:53 PM EDT Respiratory Rate 16 03/23/2024 2:53 PM EDT Oxygen Saturation 98% 03/23/2024 2:53 PM EDT Inhaled Oxygen Concentration - - Weight - - Height - - Body Mass Index - - Plan of Treatment Health Maintenance Due Date Last Done Comments DEPRESSION SCREENING 1998 SMOKING Hx and SMOKELESS TOBACCO SCREENING 10/27/1999 HEPATITIS C SCREENING 2004 HIV ONE-TIME SCREENING (18-6 5 YEARS) 2004 PAP SMEAR 10/27/2007 Adult Td,Tdap Booster 05/15/2016 05/15/2006 INFLUENZA VACCINE (#1) 2024 7, 05/15/2006 COVID-19 VACCINE (2024-2 6 season) 2025 09/16/2020, 08/19/2020 HIB VACCINES Completed 05/21/1988 MENINGOCOCCAL VACCINES (ACWY) Aged Out 01/11/2005 No longer eligible based on patient's age to complete this topic HEPATITIS A VACCINES Aged Out No long er eligible based on patient's age to complete this topic MENINGOCOCCAL VACCINES (B) Aged Out N o longer eligible based on patient's age to complete this topic PNEUMOCOCCAL VACCINES (0-49 years) Aged Out No longer eligible b ased on patient's age to complete this topic Medical Devices Not on file Insurance O EPO [facility] PPO [place] [address] [address] PPO EPO [facility]PO [place] [address] [place] [address] [address] [place] [address] [address] [address] PPO EPO PPO EPO PPO EPO Care Teams Marketing Producer Relationship Specialty Start Date End Date Pcp, Unknown PCP - General 03/09/24 Additional Source Comments The information contained in this document represents components of the legal health record. It is not the complete legal health record.[facility]
== END 2025-05-17 16:41 | disposition home or self-care (01) ==
LOC: HO.HMCH 16:05
PROVIDERS: PCP Internal Medicine; Visit Provider Internal Medicine
DX: Z00.00 Encounter for general adult medical examination without abnormal findings (principal)

== ENCOUNTER → 2025-05-17 16:04 | Outpatient (BNVA) | payer BC, SELFPAY | PROVIDERS: PCP Internal Medicine; Visit Provider Internal Medicine | DX: Z13.31 Encounter for screening for depression (principal); Z13.39 Encounter for screening examination for other mental health and behavioral disorders | CPT/HCPCS: 96127 ==